=== PATIENT | female | born 2000 | race Caucasian/White ===

== ENCOUNTER 2018-01-20 20:07 | Emergency (ER) | payer SELFPAY ==
[2018-01-20 20:08] VITALS: BP 134/74; PULSE 83; RESP 17; TEMP 36.6; O2SAT 98; BMI 30.9
--- NOTE | 2018-01-20 21:10 | ED.VISSUMM ---
- ER Visit Summary Date of Service: 01/20/18 Chief Complaint: Abdominal pain and vomiting History of Present Illness: The patient is a 17 F who presents for abdominal pain and vomiting since yesterday evening. Patient began developing abdominal pain that she describes as pain underneath the ribs and had about 30 minutes of vomiting. She was seen at the [place] emergency department and diagnosed with a stomach virus. She was given 2 prescriptions but states she could not afford to fill them. She is felt well today until dinnertime, when she began having the abdominal pain again and then a vomiting episode approximately 30 minutes in duration. Denies fever, cough, congestion, shortness of breath, chest pain, diarrhea, dysuria, hematuria, frequency or acute back pain. Patient does have concerned she is , but states that urine test do not work for her and she requires serum test. History of depression, Lyme disease, asthma. Currently not on her Lexapro due to financial issues, but has been off of it since August. Physical Examination: Vital signs: afebrile, hemodynamically stable, no hypoxia on room air General: well nourished, well developed, in no distress Skin: warm, dry, no rash, no pallor HEENT: normocephalic and atraumatic; PERRL, EOMI, moist mucous membranes Cardiovascular: regular rate and rhythm without murmurs, no peripheral edema, 2+ pulses all distal extremities Respiratory: No increased work of breathing, lungs are clear to auscultation bilaterally, no rales, rhonchi or wheezing Abdominal: Abdomen is soft, tender in the bilateral upper abdomen with normoactive bowel sounds, no guarding or rebound, no masses, no CVA tenderness, no rash MSK: Moves all extremities, no deformities, normal strength Neuro: Awake and alert, oriented ?4. No facial droop, sensation and motor function intact and symmetric Test Results: Abnormal Lab Results 01/20/18 01/20/18 01/20/18 21:15 21:15 21:15 WBC 9.8 RBC 4.77 Hgb 14.0 Hct 43.1 MCV 90.4 MCH 29.4 MCHC 32.5 RDW 13.6 RDW Differential 44.6 H Plt Count 147 L MPV 11.9 Immature Gran % (Auto) 0.200 Neut % (Auto) 67.3 Lymph % (Auto) 20.6 Simpson % (Auto) 8.2 Eos % (Auto) 3.4 Baso % (Auto) 0.3 Absolute Neuts (auto) 6.6 Absolute Lymphs (auto) 2.01 Total Counted Not Reportable Sodium 143 Potassium 3.9 Chloride 107 Carbon Dioxide 30.0 Anion Gap 6 BUN 12 Creatinine 0.70 Estim Creat Clear Calc 121.01 Est GFR (MDRD) Af Amer 139 Est GFR (MDRD) Non-Af 115 BUN/Creatinine Ratio 17.2 Glucose 87 Calcium 8.6 Total Bilirubin 0.20 AST 16 ALT 24 Alkaline Phosphatase 88 Total Protein 6.9 Albumin 3.6 Globulin 3.3 Albumin/Globulin Ratio 1.1 Lipase 97 Serum , Qual NEGATIVE Urine Color Urine Clarity Urine pH Ur Specific [place] Urine Protein Urine Glucose (UA) Urine Ketones Urine Occult Blood Urine Nitrite Urine Bilirubin Urine Urobilinogen Ur Leukocyte Esterase Urine RBC Urine WBC Ur Squamous Epith Cells Urine Bacteria Urine Mucus 01/20/18 21:25 WBC RBC Hgb Hct MCV MCH MCHC RDW RDW Differential Plt Count MPV Immature Gran % (Auto) Neut % (Auto) Lymph % (Auto) Simpson % (Auto) Eos % (Auto) Baso % (Auto) Absolute Neuts (auto) Absolute Lymphs (auto) Total Counted Sodium Potassium Chloride Carbon Dioxide Anion Gap BUN Creatinine Estim Creat Clear Calc Est GFR (MDRD) Af Amer Est GFR (MDRD) Non-Af BUN/Creatinine Ratio Glucose Calcium Total Bilirubin AST ALT Alkaline Phosphatase Total Protein Albumin Globulin Albumin/Globulin Ratio Lipase Serum , Qual Urine Color Yellow Urine Clarity Clear Urine pH 6.5 Ur Specific [place] 1.005 Urine Protein Negative Urine Glucose (UA) Normal Urine Ketones Negative Urine Occult Blood Negative Urine Nitrite Negative Urine Bilirubin Negative Urine Urobilinogen Normal Ur Leukocyte Esterase 25 H Urine RBC 0 SEEN Urine WBC 0 SEEN Ur Squamous Epith Cells 0-5 SEEN Urine Bacteria 0 SEEN Urine Mucus 0 SEEN Medications Given Discontinued Medications Sodium Chloride () 1,000 mls @ 1,000 mls/hr IV .Q1H ONE Stop: 01/20/18 22:06 Last Admin: 01/20/18 21:24 Dose: 1,000 mls/hr Emergency Department Course and Treatment: This is patient's second emergency department visit in 24 hours, thus more workup was performed. Labs were checked. Patient was offered and declined pain and nausea medicine, she states she feels okay right now. Serum was checked. Tendency negative. Labs showed no leukocytosis, no anemia, no electrolyte, renal or hepatic derangements. Lipase normal. Urine negative for infection. Patient was reevaluated and said she felt even better. This was without any interventions other than IV fluids for hydration. Patient had benign abdominal exam, and thus no imaging was performed. Given the location of her abdominal pain, cholecystitis would be on the differential, however she had mild tenderness diffusely in the upper abdomen without any specific right upper quadrant pain, no fever, no symptoms in the emergency department, and thus low suspicion for cholecystitis. Patient is to follow-up with primary care doctor, and was given a prescription for Zofran and Bentyl for home in case she has return of symptoms. Patient very well-appearing and was discharged home in improved condition. Treatment Plan: [] Disposition: [] Impression: Vomiting illness, upper abdominal pain This note was generated with [employer] dictation software. It may contain incorrect words, spelling, and punctuation that were not noted in review of the chart prior to signing ED Disposition - Plan for ED Patient: Disposition: Home or Assisted Living Chief Complaint: General Illness Instructions: ED Abdominal Pain Unkn Cause, ED Nausea Vomiting Prescriptions: Ondansetron [Zofran Odt] 4 mg PO Q8H PRN PRN #10 tab PRN Reason: Nausea Dicyclomine HCl [Bentyl] 20 mg PO TIDAC #20 cap Referrals: Adam Baumann MD [STAFF PHYSICIAN] - 3-5 Days if not improving NOT,DEFINED [NON-STAFF] - Additional Instructions: You may use the Zofran as needed for nausea and the Bentyl to help with your abdominal pain. You had lab work today that was. You had a negative test. Please follow-up with a primary care doctor as soon as possible for reevaluation. If you have any worsening of your condition or any new concerning symptoms, please return immediately to the emergency department for another evaluation.
[2018-01-20] MEDS: 0.9% Normal Saline 1,000 ML 1000 ML IV (21:24)
[2018-01-20 21:26] LABS: Absolute Lymphocyte Count 2.01 X10^3/ul (0.83-4.51); Absolute Neutrophil Count 6.6 X10^3/uL (2.0-7.7); Basophil# 0.03 X10^3/uL; Basophil% 0.3 % (0-1); Eosinophil# 0.33 X10^3/uL; Eosinophils% 3.4 % (0-5); Hematocrit 43.1 % (37-47); Lymphocyte # 2.01 X10^3/ul (4.0); Lymphocyte % 20.6 % (19-41); Mean Corp Hgb Conc 32.5 g/gl (32-36); Mean Corpuscular Hgb 29.4 pg (27.0-32.0); Mean Corpuscular Volume 90.4 fL (81-99); Mean Platelet Vol. 11.9 fl (6.2-12.0); Monocyte% 8.2 % (0-10); Neutrophil # 6.56 X10^3/uL (2.7-7.7); Neutrophil % 67.3 % (47-70); POSITIVE COUNT NO; POSITIVE DIFFERENTIAL NO; POSITIVE MORPHOLOGY NO; Platelet Count 147 K/mm3 (150-450); RBC Distribution Width CV 13.6 % (11.6-14.6); RBC Distribution Width SD 44.6 fl (35.1-43.9); Red Blood Count 4.77 M/mm3 (4.2-5.4); White Blood Count 9.8 K/mm3 (4.4-11.0)
[2018-01-20 21:31] LABS: Bacteria 0 SEEN /hpf (None Seen); Glucose, Dipstick Normal (Normal); Ketone-Dipstick Negative (Negative); Leukocyte Esterase-Dipstick 25 /ul (Negative); Mucous, Urine 0 SEEN /hpf (<or=2+); Nitrite-Dipstick Negative (Negative); Occult Blood-Urine Negative /ul (Negative); Protein-Dipstick Negative (Negative); Red Blood Cells-Urine 0 SEEN /hpf (0-5); Specific Gravity, Urine 1.005 (1.002-1.030); Urine Bilirubin Dipstick Negative (Negative); Urine Urobilinogen Normal (Normal); Urine pH 6.5 (5.0 - 8.0); White Blood Cells 0 SEEN /hpf (0-5)
[2018-01-20 21:35] LABS: Color, Urine Yellow (Yellow); Urine Clarity Clear (Clear)
[2018-01-20 21:40] LABS: ALB/GLOB Ratio 1.1 RATIO (0.9-2.4); AST(SGOT) 16 U/L (15-37); Alanine Aminotransfer ALT/SGPT 24 U/L (13-56); Albumin, Serum 3.6 g/dL (3.2-5.0); Alkaline Phosphatase 88 U/L (45-117); Anion Gap 6 (5-15); BUN 12 mg/dL (7-18); BUN/Creat Ratio 17.2 RATIO (10-20); Calcium,Total 8.6 mg/dL (8.5-10.1); Chloride 107 mmol/L (98-107); EST Glomerular Filtration Rate 115 mL/min (>60); Est Glom Filt Rate - Afr Amer 139 mL/min (>60); Estimated Creatinine Clearance 121.01 ml/min; Globulin 3.3 g/dL (2.2-4.2); Glucose 87 mg/dL (74-106); Lipase 97 U/L (73-393); Potassium 3.9 mmol/L (3.5-5.1); Protein, Total 6.9 g/dL (6.4-8.2); Sodium Level 143 mmol/L (136-145)
[2018-01-20 21:43] LABS: Pregnancy, Serum, hCG Quali. NEGATIVE Negative (0-9 Nonpreg)
[2018-01-20 21:46] LABS: Squamous Epithelial Cells - UA 0-5 SEEN /hpf (5-10)
[2018-01-20 22:12] VITALS: BP 118/67; PULSE 74; RESP 16; O2SAT 100
--- NOTE | 2018-01-20 22:15 | ED.DEP ---
ED Disposition - Plan for ED Patient: Disposition: Home or Assisted Living Chief Complaint: General Illness Instructions: ED Abdominal Pain Unkn Cause, ED Nausea Vomiting Prescriptions: Ondansetron [Zofran Odt] 4 mg PO Q8H PRN PRN #10 tab PRN Reason: Nausea Dicyclomine HCl [Bentyl] 20 mg PO TIDAC #20 cap Referrals: NOT,DEFINED [NON-STAFF] - Adam Baumann MD [STAFF PHYSICIAN] - 3-5 Days if not improving Additional Instructions: You may use the Zofran as needed for nausea and the Bentyl to help with your abdominal pain. You had lab work today that was. You had a negative test. Please follow-up with a primary care doctor as soon as possible for reevaluation. If you have any worsening of your condition or any new concerning symptoms, please return immediately to the emergency department for another evaluation.
[2018-01-20 22:20] VITALS: BP 118/67; PULSE 74; RESP 16; O2SAT 100
== END 2018-01-20 22:26 | disposition home or self-care (01) ==
PROVIDERS: Emergency Provider Emergency Medicine
DX: R10.12 Left upper quadrant pain (principal); R10.11 Right upper quadrant pain; R11.10 Vomiting, unspecified; Z72.0 Tobacco use
CPT/HCPCS: 80053; 81001; 83690; 84703; 85025; 96360; 99283; J7030; A4216